=== PATIENT | male | born 1940 | race Caucasian/White ===

== ENCOUNTER 2016-04-23 09:11 | Day surgery (SDC) | payer MEDICARE ==
[2016-04-21 09:36] VITALS: BMI 24.4
[~2016-04-23 09:11] MED LIST: LACTATED RINGERS 1,000 ML IV SCH; LIDOCAINE 1% 20 ML VIAL (10MG/ML) FOR IV START INTRADERMA PRN
[2016-04-23 09:39] LABS: Glucose,Whole Blood 132 mg/dL (75-99)
[2016-04-23 09:40] VITALS: RESP 16; TEMP 97.9
[2016-04-23] MEDS ORDERED: LIDOCAINE 1% INJ 10MG/ML (20 ML MDV) ONE (10:21)
[2016-04-23] MEDS ORDERED: PROPOFOL 10 MG/ML 20 ML VIAL IV ONE (10:21)
--- NOTE | 2016-04-23 10:54 | P.PCN ---
Date of Procedure: 04/23/16 Procedure(s) Performed: BRIEF HISTORY: Patient is a 75-year-old pleasant white male, scheduled for an elective colonoscopy as a part of screening for colorectal neoplasia. His last endoscopy was more than 15 years ago. PROCEDURE PERFORMED: Colonoscopy with snare polypectomy. PREOPERATIVE DIAGNOSIS: Screening for colon cancer. IV sedation per Anesthesia. PROCEDURE: After informed consent was obtained, the patient, was brought into the endoscopy unit. IV conscious sedation was administered by Anesthesia under continuous monitoring. Initially the Olympus CF-160 flexible video colonoscope was then inserted in the rectum, gradually advanced into the cecum without any difficulty. Careful examination was performed as the scope was gradually being withdrawn. Ileocecal valve and the appendiceal orifice were visualized and appeared normal. Prep was excellent. Mucosa of the cecum, appeared normal. In the ascending colon there was a 5 mm polyp removed by snare polypectomy. In the hepatic flexure there was a 1 cm polyp removed by snare polypectomy. In the transverse colon there were 2 polyps measuring 1 cm in size which were both removed by snare polypectomy. In the descending colon there was a 5 mm polyp removed by snare polypectomy. The rest of the ascending colon, transverse colon , descending colon, sigmoid colon, and rectum appeared normal. Retroflexion was performed in the rectum and no lesions were seen. The patient tolerated the procedure well. IMPRESSION: 5 mm ascending colon polyp status post polypectomy 1 cm hepatic flexure polyp serous was snare polypectomy 1 cm 2 transverse colon polyps status post polypectomy 5 mm descending colon polyp serous was snare polypectomy RECOMMENDATIONS: Findings of this examination were discussed with the patient as well as his family. He was advised to follow with the biopsy results. If the biopsy shows a tubular adenoma he can have a repeat colonoscopy in 3 years.
[2016-04-23 11:21] VITALS: BP 152/85; PULSE 59
== END 2016-04-23 11:40 | disposition home or self-care (01) ==
LOC: ORWHC2ENDO 09:11
PROVIDERS: ATTEND Internal Medicine Gastroenterology
DX: Z12.11 Encounter for screening for malignant neoplasm of colon (principal); D12.2 Benign neoplasm of ascending colon; D12.3 Benign neoplasm of transverse colon; K63.5 Polyp of colon; E11.9 Type 2 diabetes mellitus without complications; Z79.84 Long term (current) use of oral hypoglycemic drugs; Z79.82 Long term (current) use of aspirin; Z79.899 Other long term (current) drug therapy; Z87.891 Personal history of nicotine dependence
CPT/HCPCS: 45385; 88305; J2001; J2704

== ENCOUNTER → 2017-10-28 | Outpatient (CLI) | payer MEDICARE ==
--- NOTE | 2017-10-29 07:02 | US ---
EXAMINATION TYPE: US scrotum with doppler. Grayscale and color Doppler Duplex imaging performed of natanael saldivar scrotum. DATE OF EXAM: 10/28/2017 COMPARISON: NONE CLINICAL HISTORY: N50.9 disorder of male genital organs. Patient can feel a palpable lump EXAM MEASUREMENTS: TESTICLES: Right Testicle: 4.2 x 1.9 x 3.0 cm Left Testicle: 4.3 x 1.7 x 2.4 cm EPIDIDYMIS HEAD: Right Epididymis: 0.7 cm Left Epididymis: 0.9 cm Doppler performed to assess for testicular vascularity; good bilateral color flow and waveforms are s een. Presence of hydroceles: No Presence of varicoceles: yes, bilaterally Cyst visualized right epididymis measuring 0.4 x 0.4 x 0.4 cm. Cyst visualized left epididymis 0.8 x 0.6 x 0.9 cm IMPRESSION: No suspicious focal intratesticular mass. Tiny epididymal cysts are present bilaterally. Bilateral varicoceles are felt present.
== END | disposition home or self-care (01) ==
LOC: RADUSWWP 10:13
PROVIDERS: ATTEND Family Medicine
DX: N50.9 Disorder of male genital organs, unspecified (principal)
CPT/HCPCS: 76870; 93975

== ENCOUNTER → 2023-08-03 | Outpatient (CLI) | payer MEDICARE ==
--- NOTE | 2023-08-03 11:10 | US ---
EXAMINATION TYPE: US liver DATE OF EXAM: 08/03/2023 COMPARISON: NONE CLINICAL INDICATION: Male, 82 years old with history of R74.8 ABNORMAL LEVELS OF OTHER SERUM ENZYMES; Elevated liver enzymes TECHNIQUE: Multiple sonographic images of the right upper quadrant are obtained. FINDINGS: EXAM MEASUREMENTS: Liver Length: 12.1 cm Gallbladder Wall: 0.4 cm CBD: 0.4 cm Right Kidney: 11.8 x 5.0 x 5.3 cm Pancreas: Tail obscured by overlying bowel gas Liver: ???thrombosed vessels Gallbladder: multiple stones Evidence for sonographic Cruz's sign: no CBD: appears wnl Right Kidney: cystic area = 6.3 x 6.3 x 7.5cm The visualized portions of the pancreas are unremarkable. Cholelithiasis demonstrated. No gallbladder wall thickening or surrounding fluid. Negative sonographic Cruz's sign. Common bile duct appears w ithin normal limits. The liver is diffusely heterogenous with streak-like regions of hypoechogenicity lacking color flow. The right kidney demonstrates no evidence of hydronephrosis or nephrolithiasis. No solid mass. Exophytic simple appearing cyst identified emanating from the right kidney. IMPRESSION: 1. Findings highly suspicious for portal vein thrombosis. Further evaluation with CT abdomen liver m ass protocol is recommended. 2. Cholelithiasis without evidence for acute cholecystitis.
== END | disposition home or self-care (01) ==
LOC: RADUSWWP 07:52
PROVIDERS: ATTEND Family Medicine
DX: K80.20 Calculus of gallbladder without cholecystitis without obstruction (principal); R74.8 Abnormal levels of other serum enzymes
CPT/HCPCS: 76705

== ENCOUNTER → 2023-08-19 | Outpatient (CLI) | payer MEDICARE ==
[2023-08-19 12:45] LABS: African American GFR (CKD) >90 (>60 ml/min/1.73 sqM); Blood Urea Nitrogen 17 mg/dL (9-20); Non-African American GFR(CKD) 85 (>60 ml/min/1.73 sqM)
--- NOTE | 2023-08-19 14:11 | CT ---
EXAMINATION TYPE: CT abdomen without and with con DATE OF EXAM: 08/19/2023 COMPARISON: Correlation ultrasound liver 08/03/2023 HISTORY: 82-year-old male abnormal labs and liver US TECHNIQUE: Contiguous axial scanning of the abdomen before and after administration of 100 ml Isovue 300 IV contrast. Delayed images through the kidneys and coronal/sagittal reconstructions performed. CT DLP: 1153.1 mGycm Automated exposure control for dose reduction was used. FINDINGS: Heart upper limits of normal size without pericardial effusion. Ectatic aortic root at 3.8 cm. Some strandy atelectasis at the lung bases. No pleural effusion. There is complete thrombosis of the right portal vein and extending throughout its right-sided liver lobe branches. Small amount of nonocclusive thrombus extends into the left portal vein. Main portal vein caliber 1.5 cm. Splenic vein caliber 1.2 cm. SMV appears distended but remains paten t. Prominent portahepatic nodes measuring up to 2.2 cm probably reactive. Numerous gallstones. No abnorm al gallbladder distention. Stones measure 1.0 cm. There are lower esophageal varices noted. There is also recanalized umbilical vein. No ascites fluid or georgi splenic megaly. Bilateral renal cortical cysts, largest measuring up to 7.9 cm on the right and 3.4 cm on the left. N onobstructive right renal stone measuring 5 mm. Mild prostatic calcifications infrarenal abdominal aorta without aneurysm. No dilated small bowel, free fluid, or free air. Cfde-de-[id number] stool burden. Left-sided colonic diverticulosis. No pericolonic inflammatory change. Pelvis not imaged. Bones: Hypertrophic facet arthropathy mid to lower lumbar spine. Anterior endplate spondylosis lower thoracic spine. Trace grade 1 retrolisthesis L4/L5. IMPRESSION: 1. LARGE CALIBER TO THE PORTAL VENOUS SYSTEM SUGGESTING UNDERLYING PORTAL VENOUS HYPERTENSION. THIS I S SUPPORTED BY THE LOWER ESOPHAGEAL VARICES AND RECANALIZED UMBILICAL VEIN. FURTHER WORKUP RECOMMENDE D. 2. THERE IS EXTENSIVE RIGHT-SIDED PORTAL VENOUS THROMBOSIS EXTENDING THROUGHOUT THE RIGHT LIVER LOBE. SMALL AMOUNT OF CONTIGUOUS NONOCCLUSIVE THROMBUS EXTENDING INTO THE LEFT PORTAL VEIN. 3. PROMINENT PORTAHEPATIC LYMPH NODES MEASURING UP TO 2.2 CM, PROBABLY REACTIVE. 4. CHOLELITHIASIS WITHOUT CT FINDINGS OF ACUTE CHOLECYSTITIS. 5. LEFT-SIDED COLONIC DIVERTICULOSIS. PELVIS NOT IMAGED.
== END | disposition home or self-care (01) ==
LOC: RADCTMAIN 12:01
PROVIDERS: ATTEND Family Medicine
DX: I81 Portal vein thrombosis (principal); I85.00 Esophageal varices without bleeding; K57.30 Diverticulosis of large intestine without perforation or abscess without bleeding; K80.20 Calculus of gallbladder without cholecystitis without obstruction
CPT/HCPCS: 82565; 84520; 74160; 36415; Q9967

== ENCOUNTER → 2023-12-01 | Outpatient (CLI) | payer MEDICARE ==
[2023-12-01 11:46] LABS: African American GFR (CKD) >90 (>60 ml/min/1.73 sqM); Blood Urea Nitrogen 14 mg/dL (9-20); Non-African American GFR(CKD) 85 (>60 ml/min/1.73 sqM)
--- NOTE | 2023-12-01 13:06 | CT ---
EXAMINATION TYPE: CT abdomen w con CT DLP: 531.1 mGycm, Automated exposure control for dose reduction was used. DATE OF EXAM: 12/01/2023 12:46 PM COMPARISON: CT abdomen 08/19/2023, liver ultrasound 08/03/2023 CLINICAL INDICATION:Male, 82 years old with history of I81 PORTAL VEIN THROMBOSIS K74.60 CIRRHOSIS OF LIVER; f/u on Cirrhosis of liver, hx of portal vein thrombosis. TECHNIQUE: Standard CT of the abdomen following the administration of 100 cc of Isovue 300 IV contr ast material and oral contrast. Coronal and sagittal reformats were performed. FINDINGS: LOWER CHEST: Visualized lung bases are clear. Ectatic aortic root at 3.8 cm again. ABDOMEN LIVER: Punctate calcifications within the right hepatic dome. Large caliber to the portal venous syst em again. There is similar complete thrombosis of the right portal vein extending throughout its righ t-sided liver. Small amount of nonocclusive thrombus extends into the left portal vein again. The rubén n portal vein is patent. The SMV is patent. The splenic vein is patent. Minimal surface nodularity. GALLBLADDER AND BILE DUCTS: Cholelithiasis. No biliary duct dilatation. PANCREAS: Unremarkable. SPLEEN: Unremarkable. ADRENAL GLANDS: Unremarkable. KIDNEYS AND URETERS: No evidence of hydronephrosis. Nonobstructive right lower pole renal 5 mm calcul us is redemonstrated. Demonstration of right renal upper pole 8.2 cm cyst. Additional bilateral renal cysts redemonstrated. Contrast is demonstrated within both collecting systems. STOMACH AND BOWEL: Stomach and duodenum are unremarkable. Enteric contrast reaches the mid small brenna l. Distal colonic diverticulosis is redemonstrated. No evidence of bowel obstruction. PERITONEUM: No evidence of pneumoperitoneum or free fluid. VASCULATURE: Mild atherosclerotic calcifications are present throughout the abdominal aorta and its b ranches. No evidence of aortic aneurysm. Recanalization of the patent umbilical vein. Paraesophageal collateral vessels identified. MUSCULOSKELETAL: No acute osseous abnormalities. Hypertrophic facet arthropathy mid to lower lumbar s pine. Anterior endplate spondylosis lower thoracic spine. Trace grade 1 retrolisthesis L4/L5. LYMPH NODES: Stable prominent marcio hepatic nodes measuring up to 2.3 cm, previously 2.2 cm. SOFT TISSUE/ABDOMINAL WALL: Unremarkable IMPRESSION: 1. Similar extensive right-sided portal venous thrombosis extending through about the right liver wi th small amount of nonocclusive thrombus extending into the left portal vein. 2. Again large caliber to the portal venous system with esophageal varices and recanalized and local vein suggesting portal venous hypertension. 3. Stable prominent marcio hepatic lymph nodes which are probably reactive. 4. Cholelithiasis. 5. Colonic diverticulosis. [facility], , 12/01/2023 1:03 PM
== END | disposition home or self-care (01) ==
LOC: RADCTMAIN 11:02
PROVIDERS: ATTEND Internal Medicine Hematology & Oncology
DX: K74.60 Unspecified cirrhosis of liver
CPT/HCPCS: 36415; 74160; 82565; 84520

== ENCOUNTER → 2024-01-07 | Outpatient (CLI) | payer MEDICARE ==
--- NOTE | 2024-01-08 15:13 | MR ---
EXAMINATION TYPE: MR abdomen wo/w con DATE OF EXAM: 01/07/2024 9:05 AM COMPARISON: CT 12/01/2023, 08/19/2023 08/03/2023 CLINICAL INDICATION: Male, 83 years old with history of I81 PORT VEIN THROMBOSIS K80.20 RICCO GALLBLAD K81.0; PHH, Calculus of gallbladder w/o cholecystitis w/o obstruction, portal vein thrombosis, acute cholecystitis TECHNIQUE: Multiplanar multi-sequence imaging was performed without contrast. Post contrast imaging was performed. Post IV contrast subtraction images were also submitted for review. IV Contrast: 7 mL Gadobutrol FINDINGS: LOWER CHEST: No gross irregularity. ABDOMEN Liver: Somewhat nodular contour to the liver. There is irregular appearance with high DWI signal thro ughout the right hepatic lobe in the distribution of the portal vein thrombosis. No definitive enhanc ement seen on postcontrast subtraction imaging. There Gallbladder and Bile ducts: No evidence for ductal dilation, or biliary stricture or evidence of chol edocholithiasis. The gallbladder surgically absent. Pancreas: No ductal dilation. No evidence for solid mass. Spleen: Within normal limits for size measuring up to 12.1 cm. Adrenal glands: Unremarkable. Kidneys: No evidence for obstructive uropathy. No suspicious renal masses. Simple appearing renal cysts bilaterally which are high T2 low T1 signal measuring up tor 79 mm on t he right and 26 mm on the left. No abnormal postcontrast enhancement within the cyst. Stomach and Bowel: No evidence for bowel wall thickening or evidence for obstruction. Retroperitoneum/Peritoneum: No evidence of pneumoperitoneum or free fluid. Vasculature: No aortic aneurysm. Varices are seen around the distal esophagus. Thrombosis within the right portal vein extending to the periphery. No obvious evidence of enhancement on subtraction imagi ng. Musculoskeletal: The osseous structures appear intact. Lymph Nodes: No gross evidence for lymphadenopathy. Abdominal wall: Unremarkable. IMPRESSION: 1. Right hepatic lobe heterogenous signal on diffusion-weighted imaging. There is no real enhancemen t within this region on postcontrast imaging. Findings likely secondary to altered vascular supply du e to portal vein thrombosis possibly. Consider follow-up imaging and collision with alpha-fetoprotein to exclude underlying HCC given similar nodular contour to liver.. Portal vein to most compatible wi th bland thrombus given lack of enhancement. 2. Evidence of portal hypertension with the distal esophagus paraesophageal varices and trace ascite s. 3. Bilateral simple appearing renal cysts. [facility], , 01/08/2024 3:10 PM
== END | disposition home or self-care (01) ==
LOC: RADMRIMAIN 07:53
PROVIDERS: ATTEND Family Medicine
DX: I85.00 Esophageal varices without bleeding (principal); K80.00 Calculus of gallbladder with acute cholecystitis without obstruction; I81 Portal vein thrombosis; N28.1 Cyst of kidney, acquired; R18.8 Other ascites; K76.9 Liver disease, unspecified
CPT/HCPCS: 74183; A9585

== ENCOUNTER → 2024-01-13 | Outpatient (CLI) | payer MEDICARE ==
[2024-01-13 16:09] LABS: Hepatitis B Surface Antigen Nonreactive (Nonreactive); Hepatitis C IgG Antibody Nonreactive (Nonreactive)
[2024-01-13 16:14] LABS: Basophils # (A) 0.02 X 10*3/uL (0.00-0.10); Basophils % (A) 0.6 %; HCT 33.9 % (39.6-50.0); HGB 10.7 g/dL (13.0-17.0); Immature Grans, Automated 0 %; Lymphocytes # (A) 1.12 X 10*3/uL (0.90-5.00); Lymphocytes % (A) 33.5 %; MCHC 31.6 g/dL (32.0-37.0); MCV 91.9 FL (80.0-97.0); Monocytes # (A) 0.35 X 10*3/uL (0.20-1.00); Monocytes % (A) 10.5 %; NRBC Per 100 WBC 0 X 10*3/uL (0.00-0.01); Neutrophils # (A) 1.75 X 10*3/uL (1.80-7.70); Neutrophils % (A) 52.4 %; Platelet Count 210 X 10*3/uL (140-440); RBC 3.69 X 10*6/uL (4.40-5.60); RDW 16.6 % (11.5-14.5); WBC 3.34 X 10*3/uL (4.50-10.00)
[2024-01-13 16:35] LABS: Ceruloplasmin 28.7 mg/dL (20.0-60.0)
[2024-01-13 17:26] LABS: Ferritin 58.1 ng/mL (22.0-322.0); Iron 33 UG/DL (65-175); Total Iron Binding Capacity 330 UG/DL (228-460)
[2024-01-13 17:28] LABS: ALT 37 U/L (10-49); AST 48 U/L (14-35); Albumin 3.5 g/dL (3.8-4.9); Albumin/Globulin Ratio 1.13 Ratio (1.60-3.17); Alkaline Phosphatase 206 U/L (41-126); BUN/Creat Ratio 18.14 Ratio (12.00-20.00); Blood Urea Nitrogen 12.7 mg/dL (9.0-27.0); Calcium 9.1 mg/dL (8.7-10.3); Carbon Dioxide 24.4 mmol/L (21.6-31.8); Chloride 109 mmol/L (96-109); Globulin 3.1 g/dL (1.6-3.3); Glucose 135 mg/dL (70-110); Sodium 146 mmol/L (135-145); Total Protein 6.6 g/dL (6.2-8.2)
[2024-01-14 13:20] LABS: Protein, Total 7.1 g/dL (6.2-8.2)
== END | disposition home or self-care (01) ==
LOC: LABWHC1 08:10
PROVIDERS: ATTEND Internal Medicine Gastroenterology
DX: K74.60 Unspecified cirrhosis of liver (principal)
CPT/HCPCS: 36415; 80053; 82103; 82105; 82390; 82728; 83516; 83540; 83550; 84165; 85025; 86038; 86803; 87340